=== PATIENT | male | born 1985 | race Two or more races ===

== ENCOUNTER 2018-08-09 21:45 | Emergency (ER) | payer SELFPAY ==
[~2018-08-09] VITALS: Ht 185.4 cm; Wt 76.2 kg
[2018-08-09 22:44] VITALS: BP 128/86
[2018-08-09] MEDS ORDERED: IBUPROFEN600 MG ORAL (23:05)
[2018-08-09] MEDS ORDERED: ROBAXIN-750750 MG PO (23:05)
[2018-08-09 23:15] VITALS: BP 128/86
--- NOTE | 2018-08-10 01:33 | Emergency Room Report ---
History of Present Illness General Chief Complaint: General Complaint Source: Patient Present Illness HPI 32-year-old male presents ED for evaluation. States that while driving today he felt lightheaded. States that he drank some orange juice and felt better. Denies any dizziness at this time. Denies any headache or blurry vision. Denies chest pain or shortness of breath. States he is also experiencing some burning sensation in his armpits for the last several days. Denies any symptoms at this time. Also complaining of back pain. Localized to the upper back. 7 out of 10, dull, nonradiating. Denies any recent trauma. No other aggravating relieving factors. Denies any other associated symptoms Allergies: Coded Allergies: No Known Allergies (Unverified , 08/09/18) Patient History Past Medical History: none Past Surgical History: none Pertinent Family History: none Social History: Denies: smoking, alcohol use, drug use Immunizations: UTD Reviewed Nursing Documentation: PMH: Agreed; PSxH: Agreed Nursing Documentation-PMH Past Medical History: No Stated History Review of Systems All Other Systems: negative except mentioned in HPI Physical Exam Vital Signs Date Time Temp Pulse Resp B/P (MAP) Pulse Ox O2 Delivery O2 Flow Rate FiO2 08/09/18 22:13 97.8 68 15 128/86 97 Room Air 97.9 Sp02 EP Interpretation: reviewed, normal General Appearance: no apparent distress, alert, GCS 15, non-toxic Head: normocephalic, atraumatic Eyes: bilateral eye normal inspection, bilateral eye PERRL ENT: hearing grossly normal, normal pharynx, no angioedema, normal voice Neck: full range of motion, supple/symm/no masses Respiratory: chest non-tender, lungs clear, normal breath sounds, speaking full sentences Cardiovascular #1: regular rate, rhythm, no edema Cardiovascular #2: 2+ carotid (R), 2+ carotid (L), 2+ radial (R), 2+ radial (L) , 2+ dorsalis pedis (R), 2+ dorsalis pedis (L) Gastrointestinal: normal bowel sounds, non tender, soft, non-distended, no guarding, no rebound Rectal: deferred Genitourinary: normal inspection, no CVA tenderness Musculoskeletal: gait/station normal, normal range of motion, non-tender, tender - paraspinal thoracic tenderness Neurologic: alert, oriented x3, responsive, motor strength/tone normal, sensory intact, speech normal Psychiatric: judgement/insight normal, memory normal, mood/affect normal, no suicidal/homicidal ideation Reflexes: 3+ bicep (R), 3+ bicep (L), 3+ tricep (R), 3+ tricep (L), 3+ knee (R) , 3+ knee (L) Skin: normal color, no rash, warm/dry, well hydrated Lymphatic: no adenopathy Medical Decision Making Diagnostic Impression: Primary Impression: Dizziness Additional Impression: Back pain Qualified Codes: M54.6 - Pain in thoracic spine ER Course Hospital Course 32 yo M presents to ED c/o dizziness, bilateral axilla pain, back pain Differential diagnoses include: neck strain, shoulder strain, dislocation/ fracture Clinical course Patient placed on stretcher. After initial history and physical exam reveals a male in no acute distress. There is no focal neurological deficits. No neck stiffness or meningismal sign. Lungs clear. Cardiac auscultation normal. There is no evidence of discoloration or abscess or rash or palpable tenderness to the axilla bilaterally. There is some paraspinal thoracic tenderness, particularly underneath his shoulder blades bilaterally. This pain is muscular Discussed findings with the patient. I do believe patient requires lab work or EKG. I believe patient be safely discharged with pain medication for his back pain. Patient does voice multiple other vague complaints during assessment. Patient states he does not have a PMD nor does he have insurance. I said I will provide him with free clinic referrals Diagnosis - dizziness, back pain Stable and discharged to home with prescription for treatment motrin, Robaxin. Followup with PMD. Return to ED if symptoms recur or worsen Last Vital Signs Date Time Temp Pulse Resp B/P (MAP) Pulse Ox O2 Delivery O2 Flow Rate FiO2 08/09/18 23:15 97.9 68 15 128/86 97 Room Air 97.9 Status: improved Disposition: HOME, SELF-CARE Condition: Stable Scripts Methocarbamol* (ROBAXIN-750*) 750 Mg Tablet 750 MG PO TID, #21 TAB 0 Refills Prov: Carter Johnson MD 08/09/18 Ibuprofen* (MOTRIN*) 600 Mg Tablet 600 MG ORAL Q8H PRN for For Pain, #30 TAB 0 Refills Prov: Carter Johnson MD 08/09/18 Referrals: NOT CHOSEN IPA/,REFERRING (PCP) [facility] Patient Instructions: Back Pain, Adult, [id number] Carter Johnson MD Aug 10, 2018 01:33
== END 2018-08-09 23:15 | disposition home or self-care (01) ==
LOC: EMR 22:46
DX: R42 Dizziness and giddiness (principal); M54.9 Dorsalgia, unspecified
CPT/HCPCS: 99283